=== PATIENT | male | born 1940 | race Caucasian/White ===

== ENCOUNTER 2018-04-11 12:05 | Emergency (ER) | payer OTHER, MEDICAID ==
[2018-04-11] MEDS ORDERED: NS 500 ML IV ONE (12:43)
--- NOTE | 2018-04-11 12:48 | EDPHY ---
H & P Stated Complaint: seizure Time Seen by Provider: 04/11/18 12:48 HPI/ROS: CHIEF COMPLAINT: Seizure Limitations: Postictal confusion HISTORY OF PRESENT ILLNESS: 77-year-old male with known seizure disorder and MS presents after generalized seizure. He was at the library when he had a witnessed generalized seizure. Associated by postictal confusion. He continues to be confused and is unable to provide a clinical history. He was diagnosed with a seizure disorder in 2015 and placed on Keppra. REVIEW OF SYSTEMS: Unable to obtain - Personal History Current Tetanus/Diphtheria Vaccine: Unsure Current Tetanus Diphtheria and Acellular Pertussis (TDAP): Unsure - Medical/Surgical History Hx Asthma: No Hx Chronic Respiratory Disease: No Hx Diabetes: No Hx Cardiac Disease: No Hx Renal Disease: No Hx Cirrhosis: No Hx Alcoholism: No Hx HIV/AIDS: No Hx Splenectomy or Spleen Trauma: No Other PMH: HTN, MS. DR JUAQUIN BAILEY. pt has moran catheter. - Social History Smoking Status: Never smoked - Physical Exam Exam: General Appearance: Alert, pleasant, confused Eyes: Pupils equal and round, no conjunctival pallor or injection ENT, Mouth: Mucous membranes moist Neck: Normal inspection, no midline tenderness, range of motion without pain Respiratory: Lungs are clear to auscultation Cardiovascular: Regular rate and rhythm Gastrointestinal: Abdomen is soft and nontender Neurological: Alert, oriented to self, nonfocal exam Skin: Warm and dry Extremities: Normal inspection Psychiatric: Flat affect Constitutional: Initial Vital Signs Temperature (C) 36.9 C 04/11/18 12:10 Heart Rate 70 04/11/18 12:10 Respiratory Rate 19 04/11/18 12:10 Blood Pressure 169/99 H 04/11/18 12:10 O2 Sat (%) 96 04/11/18 12:10 O2 Delivery Mode Room Air O2 (L/minute) 3 Allergies/Adverse Reactions: No Known Allergies Allergy (Unverified 04/26/15 14:30) Home Medications: Medication Instructions Recorded Acetaminophen [Tylenol 325mg (OTC)] 650 mg PO Q6 PRN 06/18/15 Allopurinol [Allopurinol 300 MG 150 mg PO DAILY 06/18/15 (RX)] Baclofen [Baclofen 20 mg (RX)] 30 mg PO TID 06/18/15 Bisacodyl [Dulcolax] 10 mg OK DAILY PRN 06/18/15 Chlorhexidine Gluconate [Peridex 1 tsp PO BID 06/18/15 oral soln (*)] Dextran 70/Hypromellose [Tears 1 drop EACHEYE BID 06/18/15 Naturale-II Eye Drops] Folic Acid [Folic Acid 1 MG (RX)] 1 mg PO DAILY 06/18/15 Herbals/Supplements -Info Only 1 tab PO DAILY 06/18/15 Lisinopril [Zestril] 20 mg PO DAILY 06/18/15 Magnesium Hydroxide [Milk of 30 ml PO DAILY PRN 06/18/15 Magnesia (OTC)] Omeprazole [Prilosec 20 mg] 20 mg PO DAILY 06/18/15 Potassium Chloride [Klor-Con M10] 10 meq PO DAILY 06/18/15 Sulfamethox/Tmp 800/160 mg 1 tab PO BID 06/18/15 [Bactrim DS] levETIRAcetam [Keppra 500 mg (*)] 500 mg PO BID #30 tab 04/11/18 Medical Decision Making - Diagnostics EKG Interpretation: EKG interpreted by me reveals normal sinus rhythm, rate 69, no ST or T segment changes. Interpretation: Normal EKG Imaging Results: CT scan of the brain read by the radiologist unremarkable. Imaging: Discussed imaging studies w/ lang path therapist Radiologist ED Course/Re-evaluation: This patient presents after a generalized seizure. He is postictal and unable to provide any clinical history. Old medical record reviewed. He was seen here in April 2015 and diagnosed with a seizure disorder. Placed on Keppra 500 mg twice daily. 2:00 p.m.-mental status clearing. Knows that he was at the library, but does not remember what happened afterwards. He lives in his own home. He is unsure whether he is taking his seizure medicine or not. Keppra 500 mg orally given. 3pm: daughter just called, thinks pt has a UTI, as he's presenting with typical sx. Has a chronic moran, leukocytosis present, no fever. Will send urine cx at the daughter's request. However I would be reluctant to treat a UTI, unless he develops fever. Patient feels back to normal. Able to walk with a steady gait. Will plan to discharge home. Differential Diagnosis: Differential diagnosis includes though it is not limited to status epilepticus, hypoglycemia, intracranial hemorrhage, CVA, benzodiazepine withdrawal, alcohol withdrawal, epilepsy. - Data Points Laboratory Results: Laboratory Results 04/11/18 12:45 04/11/18 12:45 Microbiology Results: MICROBIOLOGY 04/11/18 15:50 Urine,Clean Catch Urine Culture - Preliminary Gram Neg Aramis Nonlactose Ferm. Medications Given: Discontinued Medications Sodium Chloride (Ns) 500 mls @ 0 mls/hr IV EDNOW ONE; Wide Open PRN Reason: Protocol Stop: 04/11/18 12:44 Last Admin: 04/11/18 13:30 Dose: 500 mls Levetiracetam (Keppra) 500 mg PO EDNOW ONE Stop: 04/11/18 14:01 Last Admin: 04/11/18 14:15 Dose: 500 mg Point of Care Test Results: Chemistry 04/11/18 04/11/18 13:39 12:21 POC Sodium 141 mEq/L mEq/L (135-145) POC Potassium 3.2 mEq/L L mEq/L (3.3-5.0) POC Chloride 102 mEq/L mEq/L (97-110) POC BUN 14 mg/dL mg/dL (7-23) POC Creatinine 1.1 mg/dL mg/dL (0.7-1.3) POC Glucose 116 mg/dL H mg/dL (70-100) POC Troponin I 0.01 ng/mL ng/mL (0.00-0.08) ISTAT H&H 04/11/18 12:21 POC Hgb 16.0 gm/dL gm/dL (13.7-17.5) POC Hct 47 % % (40-51) Departure - Departure Disposition: Home, Routine, Self-Care Clinical Impression: Generalized seizure Condition: Fair Instructions: Epilepsy (ED) Referrals: Nathan Winchester MD [Medical Doctor] - As per Instructions (Call to make an appointment.) Prescriptions: levETIRAcetam [Keppra 500 mg (*)] 500 mg PO BID #30 tab
[2018-04-11 12:52] LABS: PLATELET COUNT 339 10^3/uL (150-400)
[2018-04-11] MEDS ORDERED: levETIRAcetam 500 MG TAB PO ONE (14:00)
--- NOTE | 2018-04-11 14:27 | CPEKG ---
Test Reason : OPEN Blood Pressure : / mmHG Vent. Rate : 069 BPM Atrial Rate : 069 BPM P-R Int : 202 ms QRS Dur : 102 ms QT Int : 416 ms P-R-T Axes : 036 010 029 degrees QTc Int : 446 ms Sinus rhythm Confirmed by Marce Young ([id number]) on 04/11/2018 2:27:29 PM Referred By: Confirmed By:Marce Young
[2018-04-11 16:45] VITALS: BP 186/100
== END 2018-04-11 16:43 | disposition home or self-care (01) ==
LOC: EDUNIT# → EDSEX
DX: G40.309 Generalized idiopathic epilepsy and epileptic syndromes, not intractable, without status epilepticus (principal); E86.9 Volume depletion, unspecified; G35 Multiple sclerosis; I10 Essential (primary) hypertension; Z96.0 Presence of urogenital implants
CPT/HCPCS: 82435-PO; 82565-PO; 82947-PO; 84132-PO; 84295-PO; 84484-PO; 84520-PO; 85014-PO